=== PATIENT | male | born 1975 ===

== ENCOUNTER 2018-06-24 07:41 | Emergency (ER) | payer MEDICAID ==
--- NOTE | 2018-06-24 08:59 | C.PDOC ---
History Of Present Illness 43-year-old male, presents to the emergency department with complaints of headache, generalized anxiety and feeling light headed while cooking at work this morning. He denies any chest pain, nausea/vomiting, fever, chills or any other associated symptoms. No other complaints at this time. Time Seen by Provider: 06/24/18 08:11 Chief Complaint (Nursing): Anxiety History Per: Patient History/Exam Limitations: no limitations Past Medical History Reviewed: Historical Data, Nursing Documentation, Vital Signs Vital Signs: Last Vital Signs Temp 98.3 F 06/24/18 08:01 Pulse 73 06/24/18 08:20 Resp 19 06/24/18 08:20 BP 118/77 06/24/18 08:20 Pulse Ox 95 06/24/18 08:20 - Medical History PMH: Anxiety, Depression, Hypercholesterolemia Denies: Chronic Kidney Disease Family History: States: No Known Family Hx - Social History Hx Alcohol Use: Yes Hx Substance Use: No Review Of Systems Constitutional: Negative for: Fever Eyes: Negative for: Vision Change Cardiovascular: Negative for: Chest Pain Gastrointestinal: Negative for: Vomiting Neurological: Positive for: Headache Psych: Positive for: Anxiety Physical Exam - Physical Exam Appears: Non-toxic, No Acute Distress Skin: Warm, Dry, No Rash Head: Atraumatic, Normacephalic Eye(s): bilateral: Normal Inspection Nose: Normal Oral Mucosa: Moist Lips: Normal Appearing Throat: No Erythema, No Exudate Neck: Normal ROM, Supple Chest: Symmetrical, No Tenderness Cardiovascular: Rhythm Regular, No Friction Rub, No Murmur Respiratory: Normal Breath Sounds, No Accessory Muscle Use, No Stridor, No Wheezing Gastrointestinal/Abdominal: Soft, No Tenderness Back: Normal Inspection Extremity: Normal ROM Neurological/Psych: Oriented x3, Normal Speech Gait: Steady ED Course And Treatment - Laboratory Results Result Diagrams: 06/24/18 09:18 06/24/18 09:18 O2 Sat by Pulse Oximetry: 95 Pulse Ox Interpretation: Normal (ra) Medical Decision Making Medical Decision Making: The patient reported improvement before ED arrival. On re-exam, the patient reports improvement of symptoms. Lungs are CTA, heart is RRR, abdomen is soft, non-tender and the patient is tolerating PO well. Ambulatory in the ED with steady gait. Follow up with the medical doctor within 1-2 days without fail. Return if worsened. Disposition - Disposition Referrals: [facility] at [facility] [Outside] Disposition: HOME/ ROUTINE Disposition Time: 10:15 Condition: STABLE Additional Instructions: Follow up with the medical doctor within 1-2 days. Return if worsened. Instructions: Anxiety, Adult (DC) Forms: [facility] (Slovak) - Clinical Impression Clinical Impression: Anxiety - Scribe Statement The provider has reviewed the documentation as recorded by the Scribe (Tyrell Ulloa) All medical record entries made by the Scribe were at my direction and personally dictated by me. I have reviewed the chart and agree that the record accurately reflects my personal performance of the history, physical exam, medical decision making, and the department course for this patient. I have also personally directed, reviewed, and agree with the discharge instructions and disposition.
[2018-06-24 09:23] LABS: BASO % 0.2 % (0.0-2.0); EOS # 0.1 K/uL (0.0-0.7); EOS % 1.5 % (0.0-4.0); HEMOGLOBIN 14.1 g/dL (12.0-18.0); LYMPH % 22.1 % (20.0-40.0); MEAN CELL VOLUME 91.8 fL (80.0-94.0); MEAN CORPUSCULAR HEMOGLOBIN 32.2 pg (27.0-31.0); MEAN PLATELET VOLUME 8.4 fL (7.2-11.7); MONO # 0.7 K/uL (0.0-0.8); MONO % 7.7 % (0.0-10.0); NEUT # 6.2 K/uL (1.8-7.0); NEUT % 68.5 % (50.0-75.0); RBC 4.39 Mil/uL (4.40-5.90); RED CELL DISTRIBUTION WIDTH 13.3 % (11.5-14.5)
[2018-06-24 09:39] LABS: ALB/GLOB RATIO 1.4 (1.0-2.1); ALBUMIN 4.3 g/dL (3.5-5.0); ALT/SGPT 33 U/L (21-72); AST/SGOT 21 U/L (17-59); BLOOD UREA NITROGEN 14 mg/dL (9-20); GFR NON-AFRICAN AMERICAN > 60
[2018-06-24 10:32] VITALS: BP 118/76; PULSE 64; RESP 18; TEMP 98.8
[2018-06-24 11:22] VITALS: O2SAT 95
--- NOTE | 2018-06-24 13:54 | RAD ---
Date of service: 06/24/2018 PROCEDURE: CHEST RADIOGRAPH, 1 VIEW HISTORY: chest pain COMPARISON: None available. FINDINGS: LUNGS: Clear. PLEURA: No pneumothorax or pleural fluid seen. CARDIOVASCULAR: No aortic atherosclerotic calcification present. No radiographic findings to suggest acute or significant cardiovascular disease. OSSEOUS STRUCTURES: No significant abnormalities. VISUALIZED UPPER ABDOMEN: Normal. OTHER FINDINGS: None. IMPRESSION: No active disease. Concordant results with the preliminary interpretation rendered by the emergency department physician procedure.
--- NOTE | 2018-06-25 12:17 | CARD ---
APPROVED REPORT Date of service: 06/24/2018 EKG Measurement Heart [id number] <Conclusion> Normal sinus rhythm Normal ECG
== END 2018-06-24 10:52 | disposition home or self-care (01) ==
LOC: C.ER 07:41
DX: F41.9 Anxiety disorder, unspecified (principal)

== ENCOUNTER 2018-09-11 18:51 | Emergency (ER) | payer MEDICAID, OTHER ==
[2018-09-11 19:02] VITALS: BP 132/88; PULSE 93; RESP 20; TEMP 98.1; O2SAT 100
--- NOTE | 2018-09-11 19:35 | C.PDOC ---
History Of Present Illness 43 y/o male presents to the ER complaining of pain and swelling to the left middle finger which has been present for the past 2 days. Patient denies having fever,chills, and drainage from the area. Chief Complaint (Nursing): Upper Extremity Problem/Injury History Per: Patient History/Exam Limitations: no limitations Onset/Duration Of Symptoms: Days Current Symptoms Are (Timing): Still Present Severity: Moderate Past Medical History Reviewed: Historical Data, Nursing Documentation, Vital Signs Vital Signs: Last Vital Signs Temp 98.1 F 09/11/18 18:58 Pulse 93 H 09/11/18 18:58 Resp 20 09/11/18 18:58 BP 132/88 09/11/18 18:58 Pulse Ox 100 09/11/18 18:58 - Medical History PMH: Anxiety, Depression, Hypercholesterolemia Denies: Chronic Kidney Disease Surgical History: No Surg Hx Family History: States: No Known Family Hx - Social History Hx Alcohol Use: Yes Hx Substance Use: No - Immunization History Hx Tetanus Toxoid Vaccination: No Hx Influenza Vaccination: No Hx Pneumococcal Vaccination: No Review Of Systems Constitutional: Negative for: Fever, Chills, Weakness Eyes: Negative for: Redness ENT: Negative for: Mouth Swelling Cardiovascular: Negative for: Chest Pain Respiratory: Negative for: Cough, Shortness of Breath Gastrointestinal: Negative for: Nausea, Vomiting, Diarrhea Genitourinary: Negative for: Dysuria, Hematuria Musculoskeletal: Negative for: Back Pain Skin: Negative for: Rash Neurological: Negative for: Weakness, Numbness, Dizziness Physical Exam - Physical Exam Appears: Non-toxic, No Acute Distress Skin: Normal Color, Warm, Dry, Other ( pus collection to fat pad of left 3rd finger) Head: Atraumatic, Normacephalic Eye(s): bilateral: Normal Inspection Nose: Normal Oral Mucosa: Moist Neck: Supple Chest: Symmetrical Cardiovascular: Rhythm Regular Respiratory: Normal Breath Sounds, No Rales, No Rhonchi, No Wheezing, Other (normal inspiratory effort) Extremity: Normal ROM, Tenderness (tenderness to cuticle edge of radial aspect of left 3rd finger), Swelling (swelling to cuticle edge of radial aspect of left 3rd finger) Neurological/Psych: Oriented x3, Normal Speech ED Course And Treatment O2 Sat by Pulse Oximetry: 100 (RA) Pulse Ox Interpretation: Normal - Incision & Drainage Of Abscess Prep Used: Betadine Procedure: Incised W/Scalpel Blade#: (11), Drained Pus, Irrigated Cavity W/Saline, Probed To Break Up Loculations, Packed W/Gauze, Cultures Obtained And Sent To Lab Disposition Counseled Patient/Family Regarding: Diagnosis, Need For Followup - Disposition Disposition: HOME/ ROUTINE Disposition Time: 19:33 Condition: IMPROVED Prescriptions: Cephalexin [cephalexin] 500 mg PO TID #21 cap Instructions: Paronychia (DC) Forms: [facility] (Persian), General Discharge Instructions - Clinical Impression Clinical Impression: Paronychia of left middle finger - Scribe Statement The provider has reviewed the documentation as recorded by the Carmen Sahni Provider Attestation All medical record entries made by the Lamaribderek were at my direction and personally dictated by me. I have reviewed the chart and agree that the record accurately reflects my personal performance of the history, physical exam, medical decision making, and the department course for this patient. I have also personally directed, reviewed, and agree with the discharge instructions and disposition.
[2018-09-11] MEDS ORDERED: Bacitracin 500 Units/gm Oint Foilpak UD ONE (19:43)
== END 2018-09-11 19:50 | disposition home or self-care (01) ==
LOC: C.ER 18:51
DX: L03.012 Cellulitis of left finger (principal); E78.00 Pure hypercholesterolemia, unspecified

== ENCOUNTER 2018-09-15 12:32 | Emergency (ER) | payer OTHER ==
[2018-09-15] MEDS ORDERED: Lidocaine 1% (10 ml) Inj INFIL STA (12:53)
[2018-09-15 12:59] VITALS: BP 119/74; PULSE 74; RESP 18; TEMP 97.9; O2SAT 100
[2018-09-15] MEDS ORDERED: Lidocaine Hydrochloride 5 ML INJ ONE (12:59)
--- NOTE | 2018-09-15 13:17 | C.PDOC ---
History Of Present Illness The patient is a 43 year old male who was evaluated in this ED on 09/11 for complaints of pain and swelling to left middle finger. Patient underwent incision and drainage of the area and was discharged with Rx for Cephalexin. Patient states he did not fill his antibiotic prescription and returns to the ED today stating swelling and pus collection over the area has worsened. Patient also reports pain that is radiating up his left arm. He denies fever, chills. Time Seen by Provider: 09/15/18 12:39 Chief Complaint (Nursing): Finger,Hand,&Wrist History Per: Patient History/Exam Limitations: no limitations Onset/Duration Of Symptoms: Days Current Symptoms Are (Timing): Still Present Quality: "Pain" Additional History Per: Patient Past Medical History Reviewed: Historical Data, Nursing Documentation, Vital Signs Vital Signs: Last Vital Signs Temp 97.9 F 09/15/18 12:58 Pulse 74 09/15/18 12:58 Resp 18 09/15/18 12:58 BP 119/74 09/15/18 12:58 Pulse Ox 100 09/15/18 12:58 - Medical History PMH: Anxiety, Depression, Hypercholesterolemia Denies: Chronic Kidney Disease Surgical History: No Surg Hx Family History: States: Unknown Family Hx - Social History Hx Alcohol Use: Yes Hx Substance Use: No - Immunization History Hx Tetanus Toxoid Vaccination: No Hx Influenza Vaccination: No Hx Pneumococcal Vaccination: No Review Of Systems Constitutional: Negative for: Fever, Chills, Weakness Skin: Positive for: Other (left middle finger pain, swelling and pus collection s/p I&D ) Neurological: Negative for: Weakness, Numbness Physical Exam - Physical Exam Appears: Well, Non-toxic, No Acute Distress Skin: Normal Color, Warm, No Rash Head: Atraumatic, Normacephalic Eye(s): bilateral: Normal Inspection Extremity: Normal ROM, Tenderness (over left epicondyle region ), Capillary Refill (less than 2 seconds ), Other (swelling and pus collection along the cuticle edge of radial aspect of distal left 3rd finger. no pus collection on the fat pad, no streaking ) Pulses: Left Radial: Normal, Right Radial: Normal Neurological/Psych: Oriented x3, Normal Cranial Nerves (grossly intact ) ED Course And Treatment O2 Sat by Pulse Oximetry: 100 (on RA) Pulse Ox Interpretation: Normal - Incision & Drainage Of Abscess Anesthesia: Lidocaine 1% Prep Used: Betadine Procedure: Incised W/Scalpel Blade#: (11), Drained Pus, Irrigated Cavity W/Saline, Probed To Break Up Loculations, Packed W/Gauze, Cultures Obtained And Sent To Lab Medical Decision Making Medical Decision Making: Progress: Area was incised and drained, small wick packing placed. Patient given Motrin PO for pain. Patient is advised to fill his antibiotic prescription and take the course as prescribed. Advised to follow up tomorrow for wound check. Disposition Counseled Patient/Family Regarding: Diagnosis, Need For Followup, Rx Given - Disposition Disposition: HOME/ ROUTINE Disposition Time: 13:15 Condition: IMPROVED Additional Instructions: . Simon el antibitico prescrito en la visita anterior. 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 - Scribe Statement The provider has reviewed the documentation as recorded by the Scribe (Amanda Jimenez) All medical record entries made by the Scribe were at my direction and personally dictated by me. I have reviewed the chart and agree that the record accurately reflects my personal performance of the history, physical exam, medical decision making, and the department course for this patient. I have also personally directed, reviewed, and agree with the discharge instructions and disposition.
== END 2018-09-15 13:26 | disposition home or self-care (01) ==
LOC: C.ER 12:32
DX: L03.012 Cellulitis of left finger (principal)

== ENCOUNTER 2018-09-16 14:06 | Emergency (ER) | payer OTHER ==
[2018-09-16] MEDS ORDERED: Bacitracin 500 Units/gm Oint Foilpak UD TOP ONE (14:47)
[2018-09-16 14:48] VITALS: BMI 36.0
[2018-09-16] MEDS ORDERED: Bacitracin 500 Units/gm Oint Foilpak UD ONE (14:59)
--- NOTE | 2018-09-16 14:59 | C.PDOC ---
History Of Present Illness 43 y/o male presents to the ED for wound check of left hand 3rd digit. Patient was originally seen here on 09/11/18 for swelling to the left 3rd digit and underwent I&D. He was seen again yesterday and the paronychia was re-drained. Patient was noncompliant with antibiotics between those visits. Today he reports he filled the antibiotic and has taken it as prescribed for 1 day. He notes decreased redness and overall improvement in the pain and swelling. Otherwise patient denies any fevers, chills, new pain/swelling, worsening redness, numbness, tingling, or paresthesias. Dressing is still intact. Time Seen by Provider: 09/16/18 14:27 Chief Complaint (Nursing): Finger,Hand,&Wrist History Per: Patient History/Exam Limitations: no limitations Onset/Duration Of Symptoms: Days Ago (6) Current Symptoms Are (Timing): Better Past Medical History Reviewed: Historical Data, Nursing Documentation, Vital Signs - Medical History PMH: Anxiety, Depression, Hypercholesterolemia Denies: Chronic Kidney Disease Family History: States: Unknown Family Hx - Social History Hx Alcohol Use: Yes Hx Substance Use: No - Immunization History Hx Tetanus Toxoid Vaccination: No Hx Influenza Vaccination: No Hx Pneumococcal Vaccination: No Review Of Systems Constitutional: Negative for: Fever, Chills Musculoskeletal: Positive for: Hand Pain (left 3rd digit) Skin: Positive for: Other (redness, swelling to left 3rd digit) Neurological: Negative for: Weakness, Numbness, Other (paresthesia) Physical Exam - Physical Exam Appears: Well, Non-toxic, No Acute Distress Skin: Warm, Dry Head: Atraumatic, Normacephalic Eye(s): bilateral: Normal Inspection, PERRL, EOMI Neck: Normal ROM Cardiovascular: Rhythm Regular, No Murmur Respiratory: Normal Breath Sounds, No Accessory Muscle Use, Other (No respiratory distress) Extremity: Normal ROM, Capillary Refill (< 2 sec), No Deformity, Other (Left 3rd digit lateral nail edge erythematous, mildly swollen, tender, with wick in place) Pulses: Left Radial: Normal, Right Radial: Normal Neurological/Psych: Oriented x3, Normal Motor, Normal Sensation Gait: Steady Medical Decision Making Medical Decision Making: Impression: Visit for wound check Plan: * Wound cleaning and re-dressing Dressing and wick removed, no purulent drainage expressed. No streaking of redness. Bacitracin and new dressing applied by nursing. Provided Rx for Bacitracin ointment and educated patient on wound care. Patient advised to continue antibiotic at home and follow up with PMD as needed. Given hand specialist followup as well. Diagnostic testing results and plan of care discussed with patient. Strict instructions given regarding prescription use, importance of followup, and signs/symptoms to return to ER including worsening redness, swelling, drainage, fever, chills, or any other new/worsening symptoms. Pt verbalized understanding of discussion. Patient is A&Ox3, ambulating with steady gait, with vital signs stable for discharge. Disposition Counseled Patient/Family Regarding: Diagnosis, Need For Followup, Rx Given - Disposition Referrals: [facility] [Outside] Otoniel Altamirano MD [Staff Provider] - Disposition: HOME/ ROUTINE Disposition Time: 14:48 Condition: STABLE Additional Instructions: Take keflex as prescribed Keep wound dry and covered for 48 hours After 48 hours, you may clean the wound daily with soap and water and pat dry After cleaning, apply bacitracin and dressing Keep wound clean, dry, and covered Followup with primary doctor within 2 days Followup with hand doctor within 2 days Return to ER for any signs of wound infection including redness, tenderness, swelling, drainage, fever or any other new/worsening symptoms Prescriptions: Bacitracin OINT 1 applic TP DAILY #1 tube Instructions: Paronychia, Wound Care (DC) Forms: General Discharge Instructions, [facility] (Micronesian), Work Excuse - POA Present On Arrival: None - Clinical Impression Clinical Impression: Visit for wound check - 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 - Scribe Statement The provider has reviewed the documentation as recorded by the Scribe Anayeli Rasmussen All medical record entries made by the Lamaribderek were at my direction and personally dictated by me. I have reviewed the chart and agree that the record accurately reflects my personal performance of the history, physical exam, medical decision making, and the department course for this patient. I have also personally directed, reviewed, and agree with the discharge instructions and disposition.
[2018-09-16 15:13] VITALS: BP 153/85; PULSE 79; RESP 18; TEMP 98.6; O2SAT 96
== END 2018-09-16 15:13 | disposition home or self-care (01) ==
LOC: C.ER 14:06
DX: Z48.00 Encounter for change or removal of nonsurgical wound dressing (principal); E78.00 Pure hypercholesterolemia, unspecified

== ENCOUNTER 2018-11-04 17:23 | Emergency (ER) | payer OTHER ==
[2018-11-04 17:23] VITALS: BMI 36.0
[2018-11-04 17:43] VITALS: BP 126/81; PULSE 91; RESP 18; TEMP 98.2; O2SAT 96
--- NOTE | 2018-11-04 17:51 | C.PDOC ---
History Of Present Illness 43 y/o male presents to the ED for evaluation s/p fall 2 days ago. He now complains of pain to the left knee and left posterior ribs. States he was doing laundry, tripped, and fell down more than 10 steps. Denies any head trauma or LOC. Patient describes pain as throbbing and constant, rated 10/10. However, he has not taken any pain medication prior to arrival. Otherwise patient denies any severe headache, weakness, dizziness, paresthesias, nausea, vomiting, chest pain or SOB. Time Seen by Provider: 11/04/18 17:51 Chief Complaint (Nursing): Lower Extremity Problem/Injury History Per: Patient History/Exam Limitations: no limitations Onset/Duration Of Symptoms: Days (x 2) Current Symptoms Are (Timing): Still Present - Ankle/Foot Description Of Injury: Fell Past Medical History Reviewed: Historical Data, Nursing Documentation, Vital Signs Vital Signs: Last Vital Signs Temp 98.2 F 11/04/18 17:41 Pulse 91 H 11/04/18 17:41 Resp 18 11/04/18 17:41 BP 126/81 11/04/18 17:41 Pulse Ox 96 11/04/18 17:41 - Medical History PMH: Anxiety, Depression, Hypercholesterolemia Denies: Chronic Kidney Disease Family History: States: Unknown Family Hx - Social History Hx Alcohol Use: Yes Hx Substance Use: No - Immunization History Hx Tetanus Toxoid Vaccination: No Hx Influenza Vaccination: No Hx Pneumococcal Vaccination: No Review Of Systems Constitutional: Negative for: Fever, Weakness Eyes: Negative for: Vision Change Cardiovascular: Negative for: Chest Pain, Palpitations Respiratory: Negative for: Shortness of Breath Gastrointestinal: Negative for: Nausea, Vomiting, Diarrhea Musculoskeletal: Positive for: Leg Pain (left knee), Other (left rib pain) Skin: Negative for: Rash, Lesions Neurological: Negative for: Weakness, Numbness, Headache, Dizziness Physical Exam - Physical Exam Appears: Non-toxic, No Acute Distress Skin: Warm, Dry, No Rash Head: Atraumatic, Normacephalic Eye(s): bilateral: Normal Inspection, PERRL, EOMI Oral Mucosa: Moist Neck: Normal ROM Chest: Tenderness (posterior left rib tenderness), No Ecchymosis (or erythema) Cardiovascular: Rhythm Regular Respiratory: Normal Breath Sounds, No Rales, No Rhonchi, No Wheezing Gastrointestinal/Abdominal: Soft, No Tenderness, No Distention Extremity: Normal ROM (x 4), Tenderness (to lateral aspect of left knee), No Deformity, No Swelling, Other (No erythema, ecchymosis, or open wound) Pulses: Left Dorsalis Pedis: Normal, Right Dorsalis Pedis: Normal Neurological/Psych: Oriented x3, Normal Speech, Normal Cranial Nerves Gait: Steady (with limp) ED Course And Treatment O2 Sat by Pulse Oximetry: 96 (RA) Pulse Ox Interpretation: Normal - Other Rad L Knee XR X-Ray: Read By Radiologist Interpretation: Accession No. : [id number]. Patient Name / ID : DAYANARA BRYANT / [id number]. Exam Date : 11/04/2018 18:16:18 ( Approved ). Study Comment : Sex / Age : M / 43Y. Creator : Alicia Catherine MD. Dictator : Alicia Catherine MD. Public Area Attendant : Falsework Builder : Alicia Catherine MD. Approver2 : Report Date : 11/04/2018 18:55:15. My Comment : . PROCEDURE: Left Knee Radiographs. HISTORY: s/p fall. COMPARISON: No prior. FINDINGS: BONES: No acute displaced fracture. JOINTS: No dislocation. JOINT EFFUSION: No significant joint effusion. OTHER FINDINGS: None. IMPRESSION: Marked degenerative changes. No acute displaced fracture, dislocation, or significant joint effusion identified. If symptoms persist, or if there is continued clinical concern, x-ray follow-up in 7-10 days should be considered. L Ribs XR X-Ray: Interpreted by Me Interpretation: (-) acute rib fracture Medical Decision Making Medical Decision Making: Impression: Knee pain, Rib pain, s/p fall Plan: - 975 mg PO Tylenol - Left rib x-ray - Left knee x-ray Imaging reviewed, preliminary readings negative. Information given regarding preliminary nature of x-ray reading, with possibility that a fracture not initially detected in the ED may be found on final reading, with subsequent notification. Patient was therefore told that close follow up care for further evaluation is mandatory and further imaging may be necessary. Patient verbalizes understanding and is in agreement with plan. Patient is stable for discharge. Disposition Counseled Patient/Family Regarding: Studies Performed, Diagnosis, Need For Followup - Disposition Referrals: Shaik Candelaria MD [Staff Provider] - [facility] at [Outside] Disposition: HOME/ ROUTINE Disposition Time: 19:20 Condition: STABLE Additional Instructions: Start Naproxen twice a day Rest, Ice, Compression, and Elevation of the knee Follow up with Ortho in 1-2 days Return to ED if symptoms worsen Prescriptions: Naproxen [Naprosyn] 500 mg PO BID #30 tablet Instructions: Knee Pain (DC), Bruised Rib (DC) Forms: [facility] (Sammarinese) - Clinical Impression Clinical Impression: Knee pain, left, Rib pain on left side - 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 - Scribe Statement The provider has reviewed the documentation as recorded by the Scribderek Rasmussen All medical record entries made by the Lamaribderke were at my direction and personally dictated by me. I have reviewed the chart and agree that the record accurately reflects my personal performance of the history, physical exam, medical decision making, and the department course for this patient. I have also personally directed, reviewed, and agree with the discharge instructions and disposition.
--- NOTE | 2018-11-04 18:59 | RAD ---
PROCEDURE: Left Knee Radiographs. HISTORY: s/p fall COMPARISON: No prior. FINDINGS: BONES: No acute displaced fracture. JOINTS: No dislocation. JOINT EFFUSION: No significant joint effusion. OTHER FINDINGS: None. IMPRESSION: Marked degenerative changes. No acute displaced fracture, dislocation, or significant joint effusion identified. If symptoms persist, or if there is continued clinical concern, x-ray follow-up in 7-10 days should be considered.
--- NOTE | 2018-11-05 11:10 | RAD ---
Date of service: 11/04/2018 PROCEDURE: Radiographs of the Chest and Left Ribs. HISTORY: s/p fall COMPARISON: 06/24/2018 single-view chest. TECHNIQUE: Frontal radiograph of the chest and multiple oblique radiographs of the left ribs were obtained. 4 views obtained. FINDINGS: LEFT RIBS: No fracture or focal lesion visualized. LUNGS: Clear. PLEURA: No pneumothorax or pleural fluid. CARDIOVASCULAR: Normal cardiac size. No pulmonary vascular congestion. No aortic atherosclerotic calcification present OTHER FINDINGS: None. IMPRESSION: Unremarkable radiographs of the chest and left ribs. No left rib fracture. No significant interval change compared to the prior examination(s).
== END 2018-11-04 20:00 | disposition home or self-care (01) ==
LOC: C.ER 17:23
DX: M25.562 Pain in left knee (principal); R07.81 Pleurodynia